=== PATIENT | female | born 1945 | race Caucasian/White ===

== ENCOUNTER 2017-04-11 07:35 | Inpatient (IN) ==
--- NOTE | 2017-04-11 08:04 | EKG Report ---
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
[2017-04-11 08:39] LABS: Basophils # 0.1 10*3/uL (0.0-0.2); Basophils % 0.7 % (0.0-0.8); Eosinophils # 0.2 10*3/uL (0.0-0.87); Eosinophils % 3.4 % (0.00-10.9); Hematocrit 36.9 VOL% (35.7-47.0); Hemoglobin 12.5 GM/DL (12.0-16.0); Immature Granulocytes % 0.1 %; Immature Granulocytes Absolute 0.01 #; Lymphocytes # 1.6 10*3/uL (1.4-4.0); Lymphocytes % 22.3 % (21.3-54.2); Mean Corpuscular HGB Conc 33.9 GM/DL (32-36); Mean Corpuscular Hemoglobin 31 PG (27-34); Mean Corpuscular Volume 91.8 FL (87-102); Mean Platelet Volume 9.7 FL (9.6-12.0); Monocytes # 0.6 10*3/uL (0.11-0.8); Monocytes % 7.8 % (1.7-12.7); Neutrophils # 4.7 10*3/uL (1.4-7.4); Neutrophils % 65.7 % (38.7-73.9); Platelet Count 204 T/CUMM (130-400); Red Blood Count 4.02 MC/CUMM (3.8-5.5); Red Cell Distribution Width 13.1 % (9.3-17.3); White Blood Count 7.1 T/CUMM (4-12)
--- NOTE | 2017-04-11 08:39 | XRay Report ---
Exam: XR chest 1V portable Date: 04/11/2017 8:22 AM Indication: Shortness of breath Comparison: None Technical: AP Findings: The heart is mildly prominent. Patchy area of densities present in the left infrahilar region. External cardiac leads are present. No pneumothorax. No obvious effusion. Mediastinum reveals small tiny nodes on the left. Impression: 1. Question patchy interstitial infiltrate in the left infrahilar region with underlying calcified nodes in the mediastinum PROCEDURE INTERPRETED AT [facility] DEPARTMENT OF RADIOLOGY Final Report Signed by: Dr. Navarro Lincoln
--- NOTE | 2017-04-11 08:47 | CT Report ---
Exam: CT scan of brain without contrast Date: 04/11/2017 Indication: Syncope Comparison: None Patient's classification: Emergency department Technical: Images were obtained from the skull base to the vertex without the use of intravenous contrast. Dose reduction was performed with decreasing kv and mA and automated exposure Total DLP: 1073.1 mGy*cm Findings: The brainstem is unremarkable. The cerebellum is intact. Slight decreased attenuation suggest small vessel changes in the periventricular subcortical white matter regions. The paranasal sinuses globes and sella mastoids are otherwise intact. Vascular plaque within the internal carotid arteries present. The ventricles are slightly prominent. The calvarium is intact. Impression: 1. Minimal small vessel disease without acute hemorrhage infarction or mass effect. PROCEDURE INTERPRETED AT [facility] DEPARTMENT OF RADIOLOGY Final Report Signed by: Dr. Navarro Lincoln
--- NOTE | 2017-04-11 08:58 | Emergency Department Note ---
Arrival - Arrival Chief Complaint: Syncope Stated Complaint: Syncope ED Nursing Triage Note: Patient to ER 08 via EMS. Patient complains that she became light headed and dizzy. Denies fall. Patient had a positive loss of consciousness. Patient denies pain. Mode of Arrival: Stretcher Limitations: No Limitations Source: Patient Time Seen by Provider: 04/11/17 08:13 - History of Present Illness HPI Narrative: The patient complains of a sudden syncopal episode while riding in the car this morning. She says she all of a sudden felt "all crazy" and passed out. Duration was only about 5 seconds. She remembers her almost immediately saying "are you alright." She denies any other presyncopal symptoms. No flushed feeling, chest pain, palpitations, nausea, vomiting or shortness of breath. She initially felt like this may have been due to hypoglycemia, however, she usually has a lot of presyncopal symptoms over at least 10 minutes. This episode happened without warning. Also, her glucose was measured a short time later, after drinking a cup of orange juice, and was 230. She was still feeling weak at that point. At this point she has no complaints and feels back to normal. She has no history of any cardiac problems. Date of Last Menstrual Period: [facility] Allergies/Adverse Reactions: Allergies Allergy/AdvReac Type Severity Reaction Status Date / Time No Known Allergies Allergy Verified 04/11/17 07:45 Home Medications: Home Medications Medication Instructions Recorded Confirmed Type ALPRAZolam [Alprazolam] 0.25 mg PO TID 04/11/17 History Estradiol [Estradiol Tab] 0.5 mg PO DAILY 04/11/17 History Insulin Aspart [NovoLOG] 35 unit SUBCUT .PUMP 04/11/17 History Lisinopril [Lisinopril] 20 mg PO DAILY 04/11/17 History buPROPion HCl [Bupropion Xl] 300 mg PO DAILY 04/11/17 History Review of System - Review of System 12 point system: reviewed and no additional remarkable complaints except as stated - Review of System Constitutional: Absent: diaphoresis, fever Eyes: Absent: vision change Head/Ears/Nose/Throat: Absent: nasal drainage, sore throat Respiratory: Absent: cough, respiratory distress Cardiovascular: Present: syncope. Absent: chest pain, palpitations, dyspnea on exertion, orthopnea, edema Gastrointestinal: Absent: abdominal pain, nausea, vomiting Musculoskeletal: Absent: arm pain, back pain, neck pain Neurological: Absent: headache, weakness, numbness, paresthesias, confusion Medical,Surgical,& Family Hx - Medical History Cardio: History of: Hypertension Endocrine: History of: Diabetes Mellitus (IDDM), Thyroid Disorder - Surgical History Reproductive Surgeries: Surgical HX of;: Hysterectomy - Family History Family History: noncontributory - Social History Smoking Status: Never smoker Frequency of Alcohol Use: Occasionally Type of Drug Use: None Exam Physical Examination: GENERAL: Alert. No acute distress. HEENT: Normocephalic and atraumatic. There is no nasal drainage. No pharyngeal erythema or exudate. NECK: Normal inspection. Supple. No lymphadenopathy or meningismus. LUNGS: No respiratory distress. Clear to auscultation bilaterally, no wheezes, rales or rhonchi. HEART: Regular rate and rhythm. No murmurs. ABDOMEN: Soft, nontender and nondistended with normoactive bowel sounds. BACK: Normal inspection. SKIN: Color normal. Warm and dry. EXTREMITIES: Nontender. Normal range of motion. No pedal edema. NEUROLOGICAL/PSYCHIATRIC: Alert and oriented -3 with normal mood and affect. Cranial nerves normal. No motor or sensory deficit. No pronator drift. Normal finger to nose bilaterally. Vital Signs: Vital Signs Temperature 97.2 F L 04/11/17 07:50 Pulse Rate 78 04/11/17 09:40 Respiratory Rate 12 04/11/17 09:40 Blood Pressure 128/56 04/11/17 09:40 O2 Sat by Pulse Oximetry 96 04/11/17 09:10 Course - Reevaluation(s) Reevaluation #1: I have notified the hospitalist service for admission. They are supposed to come back to the ER. Time: 10:40 Reevaluation #2: I have discussed the patient with the hospitalist service again who will come and see her and admit Time: 11:22 Results - Labs CBC & BMP: 04/11/17 08:15 04/11/17 08:15 Lab Results: I have reviewed the patients labs Labs: Laboratory Tests 04/11/17 04/11/17 04/11/17 08:15 08:15 08:15 INR 1.0 Total Bilirubin 0.60 AST 47 H ALT 28 Troponin I 0.029 Free T4 1.57 H TSH 3rd Generation 0.975 Ur Specific [place] Urine RBC Urine WBC Ur Culture Indicated? 04/11/17 09:08 INR Total Bilirubin AST ALT Troponin I Free T4 TSH 3rd Generation Ur Specific [place] 1.009 Urine RBC <1 Urine WBC 5 Ur Culture Indicated? Not indicated - Impressions EKG shows a sinus rhythm at 69 with a first-degree AV block and a right bundle branch block. No old EKG for comparison. Chest x-ray shows Question patchy interstitial infiltrate in the left infrahilar region with underlying calcified nodes in the mediastinum Disposition Clinical Impression: Syncope Case discussed with: patient Disposition: Still a Patient Condition: Stable Time of Disposition: 11:24
[2017-04-11 09:19] LABS: Apearance,Urine Slightly Hazy (Clear); Bilirubin,Urine Negative (Negative); Blood, Urine Negative (Negative); Glucose,Urine (UA) >=500 mg/dL (Negative); Hyaline Casts,Urine 6 /LPF (0-3); Ketones,Urine Negative (Negative); Mucus,Urine Occasional /LPF (Occasional); Nitrite,Urine Negative (Negative); Protein,Urine Negative; RBC,Urine <1 /HPF (0-4); Squamous Epithelial Cell,Urine Occasional /HPF (0-10); Urine Color Yellow (Yellow); Urine Specific Gravity 1.009 (1.001-1.035); Urine Urobilinogen < 2.0 EU/DL (0.2-1.0); WBC,Urine 5 /HPF (0-6)
[2017-04-11 09:21] LABS: Albumin 3.8 G/DL (3.4-5.0); Bilirubin,Total 0.6 MG/DL (0.2-1.0); Calcium 8.9 MG/DL (8.5-10.1); Magnesium 2.4 MG/DL (1.8-2.4); Osmolality,Calculated 285.5 MOS/KG (273-304); Total Protein 7.2 G/DL (6.4-8.3); Troponin I Only 0.029 NG/ML (0.00-0.045)
[2017-04-11 09:24] LABS: Free T4 (Free Thyroxine) 1.57 NG/DL (0.76-1.46); Thyroid Stimulating Hormone 0.975 uIU/ml (0.358-3.74)
--- NOTE | 2017-04-11 12:16 | Hospitalist History & Physical ---
<Nieves Buckner - Last Filed: 04/11/17 15:04> Assessment and Plan - Time spent with patient Time spent with patient: Greater than 30 minutes (1) Syncope Status: Acute Assessment and plan: Admit, IV fluids; cardotid; Echo; venous doppler; a.m. labs; blood sugar monitoring (patient has an insulin pump (had about 7 years without any problems) ; Current Visit: Yes History of Present Illness Chief complaint: syncope History of present illness: Ms. Ferreira is a very pleasant 71 year old white female presented to [facility] for syncopal episode occurring this a.m. around 630 while riding in the car with her ; she experienced with associated brief episode of loss of consciousness lasting less than a minute; which she woke with her shaking her and asking her if she was okay. She immediately thought her sugar was low; so she got an orange juice and waited for the ambulance to arrive. No other symptoms were present at time of episode. Medical history: Hypertension, diabetes, thyroid disorder. Surgical history: Hysterectomy. Family history: Brother and sister - diabetes; father -cancer. Allergy: None. Never smoked, no alcohol, or illicit drugs. Ambulates with out assistance. Lives at home with spouse Upon presentation at the ED patient was evaluated and lab: WBC 7.1; H&H 12.5 and 36.9; platelet 204; rest of CBC without significance; INR 1.0; PT 10.0; sodium 139; potassium 5.0; chloride 102; carbon dioxide 32; anion gap 10.0; BUN 13; creatinine 1.00; GFR 60; glucose 256; mag 2.4; calcium 8.9; AST 47; AST ALT 28; troponin 0.029; TSH 0.975; T4 1.57; urine:yellow pH 8; specific gravity 1.009; ketones negative; leukocytes trace; WBCs 5; Head CT: Minimal small vessel disease without acute hemorrhage infarction or mass-effect Chest x-ray: Question patchy interstitial infiltrate in the left in infrahilar region with underlying calcified nodes in the mediastinum. After further discussion with Dr. Dr. Horton ED physician and Dr. Johnson hospitalist physician it was in agreement that patient needed to be admitted for further evaluation. Patient is a full code. Home Medications Medication Instructions Recorded Confirmed Type ALPRAZolam [Alprazolam] 0.25 mg PO TID 04/11/17 04/11/17 History Aspirin EC Tab 81 mg PO QAM 04/11/17 04/11/17 History Estradiol [Estradiol Tab] 0.5 mg PO QAM 04/11/17 04/11/17 History Insulin Aspart [NovoLOG] 35 unit SUBCUT .PUMP 04/11/17 04/11/17 History Levothyroxine Tab [Synthroid Tab] 125 mcg PO DAILY@0700 04/11/17 04/11/17 History Lisinopril [Lisinopril] 20 mg PO QAM 04/11/17 04/11/17 History buPROPion HCl [Bupropion Xl] 300 mg PO QAM 04/11/17 04/11/17 History Allergies Allergy/AdvReac Type Severity Reaction Status Date / Time No Known Allergies Allergy Verified 04/11/17 07:45 Medical,Surgical,& Family Hx - Medical History Cardio: History of: Hypertension Endocrine: History of: Diabetes Mellitus (IDDM), Thyroid Disorder - Surgical History Reproductive Surgeries: Surgical HX of;: Hysterectomy - Social History Smoking Status: Never smoker Frequency of Alcohol Use: Occasionally Type of Drug Use: None Review of systems: ROS completed and pertinent positives and negatives in the HPI. Exam - Constitutional Vitals: Period Temp Pulse Resp BP Sys/Molina Pulse Ox Last 24 Hr 97.2 F-97.2 F 69-81 - 128-139/56-72 96-100 General appearance: normal weight - Head Head exam: Present: normal inspection - Eye Eye exam: Present: EOMI Pupils: Present: JENNIFER - Neck Neck exam: Present: normal inspection - Respiratory Respiratory exam: Present: clear to auscultation bilaterally - Cardiovascular Cardiovascular exam: Present: regular rate and rhythm - GI/Abdominal GI/Abdominal exam: Present: normal bowel sounds, soft. Absent: guarding, tenderness - Extremities Exam Extremities exam: Present: full ROM - Neurological Exam Neurological exam: Present: alert, oriented X3, CN II-XII intact - Psychiatric Psychiatric exam: Present: normal affect - Skin Skin exam: Present: normal color, warm, dry Results - Labs CBC & BMP: 04/11/17 08:15 04/11/17 08:15 Lab Results: I have reviewed the past 24 hour labs - Diagnostic Findings Procedure: Chest x-ray: report reviewed by me (question patchy interstitial infiltrate in the left infrahilar region with underlying calcified nodes in the mediastinum), CT: report reviewed by me (Minimal small vessel disease without acute hemorrage infarction or mass effect.) <Kenny Johnson - Last Filed: 04/11/17 15:51> History of Present Illness History of present illness: Patient seen and examined independently of LEASING SALES CONSULTANT Buckner, agree with history, assessment and plan as documented. 71 y/o WF with no known cardiac history presents s/p syncopal episode while driving. She does not remember losing consciousness but notes that her coffee was spilled and she does not remember spilling it. She felt dizzy and lightheaded. Her witnessed the episode but is not in the room at the time of my exam. She does report a long history of mild dizziness episodes associated with looking up, episodes seemed to improve with increasing fluid intake. Of note patient also has an insulin pump, it does not appear that she was hypoglycemic during the episode. She also denies urinary and bowel incontinence. Will admit for syncope. Echo, carotid dopplers, orthostatic vitals and hydrate gently overnight. If work-up is negative she might benefit from a cardiac consult for further monitoring. Exam - Constitutional Vitals: Period Temp Pulse Resp BP Sys/Molina Pulse Ox Last 24 Hr 97.2 F-98.0 F 69-85 12-20 118-151/56-72 96-100 Results - Labs CBC & BMP: 04/11/17 08:15 04/11/17 08:15
--- NOTE | 2017-04-11 12:19 | Ultrasound Report ---
Exam: US venous doppler LE BI Indication: Syncope edema Date: 04/11/2017 11:39 AM Findings: Grayscale color flow duplex/Doppler imaging and spectral analysis waveform imaging was performed with real-time ultrasound with image stored and captured. The right common femoral, superficial femoral, popliteal saphenous veins are patent with normal augmentation and compression. There is no evidence of popliteal or Tolentino's cyst. Normal wave form analysis present. Normal color flow The left common femoral, superficial femoral, popliteal saphenous veins are patent with normal augmentation and compression. There is no evidence of popliteal or Tolentino's cyst. Normal wave form analysis present. Normal color flow Impression: 1. No DVT PROCEDURE INTERPRETED AT [facility] DEPARTMENT OF RADIOLOGY Final Report Signed by: Dr. Navarro Lincoln
--- NOTE | 2017-04-11 12:42 | Ultrasound Report ---
Exam: Carotid ultrasound Date: 04/11/2017 Comparison: None Technique: Duplex scans of the carotid and vertebral arteries using B-mode/Louise scale imaging and Doppler spectral analysis and color flow. Reason: Syncope Findings: The right ICA measures 5.0 mm in diameter and the left ICA measures 4.5 mm in diameter. Color-flow documented in the visualized arteries. The peak systolic velocities are as follows: Right CCA: 62.5 cm/s Right ICA: 96.4 cm/s Right ECA: 139.2 cm/s Left CCA: 85.7 cm/s Left ICA: 106.5 cm/s Left ECA: 141.3 cm/s The peak systolic ICA/CCA velocity ratios are as follows: 1.5 on the right and 1.2 on the left. Antegrade flow is present in both vertebral arteries. Impression:[0-15% stenosis in both internal carotid arteries with no significant plaque formation. Antegrade flow in both vertebral arteries.] The Society of Radiologists in Ultrasound consensus conference criteria was used. The Ultrasound images were captured and stored. PROCEDURE INTERPRETED AT [facility] DEPARTMENT OF RADIOLOGY Final Report Signed by: Dr. Irina Bird
[2017-04-11] MEDS ORDERED: INSULIN ASPART 35 UNIT SUBCUT SCH (13:54)
[2017-04-11] MEDS: ALPRAZolam 0.25 MG TABLET PO SCH ×2 (15:32→21:23)
[2017-04-11] MEDS ORDERED: INSULIN LISPRO 100 UNIT/ML SUBCUT PRN (16:00)
--- NOTE | 2017-04-11 18:26 | ECHO Report ---
Cassi Ferreira Exam Date: 04/11/2017 12:23 Referring Physician: Technologist: June Webster Age: 71 Ht (in): 69 Wt (lb): 148 Gender: F Exam Location: [facility] Echo Indications: syncope, Hx. HTN, diabetes, thyroid disorder BP: 142 / 68 HR: 75 Rhythm: Sinus Technical Quality: Fair IMPRESSIONS EF 60 %. Grade I/IV diastolic dysfunction (abnormal relaxation filling pattern), normal to mildly elevated filling pressures. Normal right ventricular size. Normal right atrial size. The left atrium is mildly enlarged. No mitral valve regurgitation. Mild mitral valve sclerosis. Aortic valve sclerosis. No aortic valve regurgitation. Mild tricuspid valve regurgitation. PAP35 mmHG. Morphologically normal pulmonic valve. No pericardial effusion. Normal size aortic root and proximal ascending aorta. MEASUREMENTS (Male / Female) Normal Values 2D ECHO LV Diastolic Diameter PLAX 3.3 cm 4.2 - 5.9 / 3.9 - 5.3 cm LV Systolic Diameter PLAX 1.8 cm LV Fractional Shortening PLAX 43.6 % IVS Diastolic Thickness 1.2 cm 0.6 - 1.0 / 0.6 - 0.9 cm LVPW Diastolic Thickness 1.1 cm 0.6 - 1.0 / 0.6 - 0.9 cm RV Internal Dim ED PLAX 2.4 cm Aortic Root Diameter 2.0 cm LA Systolic Diameter LX 2.8 cm 3.0 - 4.0 / 2.7 - 3.8 cm DOPPLER TR Peak Velocity 144.0 cm/s TR Peak Gradient 8.3 mmHg FINDINGS Left Ventricle EF 60 %. Grade I/IV diastolic dysfunction (abnormal relaxation filling pattern), normal to mildly elevated filling pressures. Right Ventricle Normal right ventricular size. Right Atrium Normal right atrial size. Left Atrium The left atrium is mildly enlarged. Mitral Valve No mitral valve regurgitation. Mild mitral valve sclerosis. Aortic Valve Aortic valve sclerosis. No aortic valve regurgitation. Tricuspid Valve Morphologically normal tricuspid valve. Mild tricuspid valve regurgitation. .PAP35 mmHG. Pulmonic Valve Morphologically normal pulmonic valve. Pericardium No pericardial effusion. Aorta Normal size aortic root and proximal ascending aorta. Lucio Brandon (Electronically Signed) Final Date: 11 April 2017 18:24
[2017-04-12] MEDS: LEVOTHYROXINE 125 MCG TABLET PO SCH (06:10)
[2017-04-12 07:18] LABS: Basophils % 0.6 % (0.0-0.8); Eosinophils # 0.3 10*3/uL (0.0-0.87); Eosinophils % 4.5 % (0.00-10.9); Hematocrit 33.5 VOL% (35.7-47.0); Hemoglobin 11.2 GM/DL (12.0-16.0); Immature Granulocytes % 0.3 %; Immature Granulocytes Absolute 0.02 #; Lymphocytes # 2.6 10*3/uL (1.4-4.0); Lymphocytes % 40.6 % (21.3-54.2); Mean Corpuscular HGB Conc 33.4 GM/DL (32-36); Mean Corpuscular Hemoglobin 31 PG (27-34); Mean Corpuscular Volume 92.5 FL (87-102); Mean Platelet Volume 10.4 FL (9.6-12.0); Monocytes # 0.7 10*3/uL (0.11-0.8); Monocytes % 10.7 % (1.7-12.7); Neutrophils # 2.7 10*3/uL (1.4-7.4); Neutrophils % 43.3 % (38.7-73.9); Platelet Count 210 T/CUMM (130-400); Red Blood Count 3.62 MC/CUMM (3.8-5.5); Red Cell Distribution Width 13.2 % (9.3-17.3); White Blood Count 6.3 T/CUMM (4-12)
[2017-04-12 07:49] LABS: Albumin 3.3 G/DL (3.4-5.0); Calcium 8.4 MG/DL (8.5-10.1); Magnesium 2.3 MG/DL (1.8-2.4); Phosphorous 3.2 MG/DL (2.5-4.9); Potassium 4.7 MMOL/L (3.5-5.1); Total Protein 6.4 G/DL (6.4-8.3)
[2017-04-12] MEDS: ESTRADIOL 1 MG TABLET PO SCH (10:13)
[2017-04-12] MEDS: ASPIRIN EC 81 MG TABLET PO SCH (10:13)
[2017-04-12] MEDS: ALPRAZolam 0.25 MG TABLET PO SCH ×3 (10:14→21:09)
[2017-04-12] MEDS: LISINOPRIL 20 MG TABLET PO SCH (10:14)
--- NOTE | 2017-04-12 17:27 | Hospitalist Progress Note ---
Assessment and Plan - Time spent with patient Time spent with patient: Less than 30 minutes (1) Syncope Status: Acute Assessment and plan: Workup for syncope negative so far as stated in the HPI, Holter monitor results pending, will adjust therapy accordingly, continue Accu-Cheks and sliding scale insulin as well as diabetic diet and gentle hydration. Current Visit: Yes Hospitalist: Subjective Interval history: Patient sitting in bed comfortably eating lunch, in no acute distress and no acute events overnight. Denies any further syncopal events and states that she feels well. Today the patient states that her admits that she may have been unconscious for 2 or 3 minutes while he found a place to veneer puller and evaluate her. Patient was not hypoglycemic when the paramedics checked her blood glucose. Orthostatic blood pressures negative. Carotid ultrasound shows no significant stenosis bilaterally. Echocardiogram shows an EF of 60%. Venous Dopplers of lower extremities show no DVT. CT head was normal. EKG shows mild first and second-degree blocks. Patient is currently wearing Holter monitor which 24 hours will be completed this evening and then will need to be evaluated. Patient denies nausea, vomiting, constipation, diarrhea, chest pain , shortness of breath or pain/swelling in lower extremities. Exam - Constitutional Vitals: Period Temp Pulse Resp BP Sys/Molina Pulse Ox Last 24 Hr 97.4 F-98.2 F 51-83 18-20 105-145/47-76 99-99 General appearance: normal weight - Head Head exam: Present: normal inspection - Eye Eye exam: Present: EOMI Pupils: Present: JENNIFER - Respiratory Respiratory exam: Present: clear to auscultation bilaterally - Cardiovascular Cardiovascular exam: Present: regular rate and rhythm - GI/Abdominal GI/Abdominal exam: Present: normal bowel sounds, soft - Extremities Exam Extremities exam: Present: normal inspection - Neurological Exam Neurological exam: Present: alert, oriented X3 - Psychiatric Psychiatric exam: Present: normal affect, normal mood - Skin Skin exam: Present: normal color Results - Labs CBC & BMP: 04/12/17 05:20 04/12/17 05:20 Lab Results: I have reviewed the past 24 hour labs
[2017-04-13] MEDS: LEVOTHYROXINE 125 MCG TABLET PO SCH (06:07)
[2017-04-13 07:30] VITALS: BP 119/52
[2017-04-13] MEDS: ASPIRIN EC 81 MG TABLET PO SCH (09:08)
[2017-04-13] MEDS: ESTRADIOL 1 MG TABLET PO SCH (09:09)
[2017-04-13] MEDS: LISINOPRIL 20 MG TABLET PO SCH (09:10)
[2017-04-13] MEDS: ALPRAZolam 0.25 MG TABLET PO SCH ×2 (09:12→16:45)
--- NOTE | 2017-04-13 11:17 | Discharge Summary ---
<Nieves Buckner - Last Filed: 04/13/17 11:51> Hospital Course - Hospital Course Hospital Course: 71 yo female with history IDDM presented to [facility] for a new onset syncopal episode while riding in the car as a passenger with her . Patient has an insulin pump and BS was 235. Labs results were unremarkable. BS were monitored. Echo: EF 60% with mild diastolic dysfunction, US Carotid doppler: 0-15% stenosis; no significant plaque, Venous Doppler: No DVT; Cardiac Holter Monitor: completed but Pending reading results. CT head: normal. EKG: NSR with complete RBBB. Patient feels good today and will be discharged home with f/u by Cardiology and PMD in one to two weeks. - Time spent with patient Time with patient DS: Less than 30 minutes Diagnosis - Discharge Diagnosis (1) Syncope Status: Resolved Specialty Discharge - Follow Up or Referrals Follow up with: Dr LANIE [Other] - 1 Week (first available for syncope, holter monitor done ) Discharge Plan - Discharge Data Disposition: Disch To Home/Self Care - Discharge Medications Continue Insulin Aspart [NovoLOG] 35 unit SUBCUT .PUMP buPROPion HCl [Bupropion Xl] 300 mg PO QAM Lisinopril 20 mg PO QAM Levothyroxine Tab [Synthroid Tab] 125 mcg PO DAILY@0700 ALPRAZolam [Alprazolam] 0.25 mg PO TID Estradiol [Estradiol Tab] 0.5 mg PO QAM Aspirin EC Tab 81 mg PO QAM - Follow Up or Referral Follow Up: Dr LANIE [Other] - 1 Week (first available for syncope, holter monitor done ) - Forms/Instructions Exam - Constitutional Vitals: Period Temp Pulse Resp BP Sys/Molina Pulse Ox Last 24 Hr 97.3 F-98.2 F 62-94 18-20 103-133/48-58 97-99 - Eye Eye exam: Present: EOMI Pupils: Present: JENNIFER - Neck Neck exam: Present: normal inspection - Neurological Exam Neurological exam: Present: alert, oriented X3 - Skin Skin exam: Present: normal color, warm, dry Discharge Results Procedures and tests throughout hospitalization: ECHO: Left Ventricle EF 60 %. normal to mildly elevated filling pressures. VENOUS DOPPLER: No DVT Carotid Doppler: 0-15% stenosis in both internal carotid arteries with no significant plaque information. HEAD CT: minimal small vessel disease without acute hemorrhage infarction or mass effect Chest XRay: question patchy intestitial infiltrate in the left infrahilar region with underlying calcified nodes in the mediastinum. Labs on day of discharge: Labs from last 24 hours 04/13/17 04/12/17 04/12/17 06:49 21:56 15:46 POC Glucose 249 H 289 H 331 H 04/12/17 12:09 POC Glucose 226 H DS: Provider Date of admission: 04/11/17 11:37 Primary care physician: Yoly Townsend M.D. Attending physician on admission: Tani Schneider MD Consults: 04/11/17 13:54 Consult to Diabetes Center, Educator [CONS] Routine Reason for Transportation Superintendent: Other Consult Comment: pt has insulin pump, in with syncopy 04/11/17 14:16 Consult to Dietitian [CONS] Routine Reason for Dietitian: Other Discharging clinician: Nieves Buckner NP <Ashleigh Kang - Last Filed: 04/13/17 12:58> Hospital Course - Time spent with patient Time with patient DS: Less than 30 minutes (25 min) Discharge Plan - Discharge Data Condition at Discharge: Stable Discharge Diet: heart healthy Activity: resume usual activities as tolerated Hygiene: no restrictions Weight Bearing at Discharge: full weight bearing Driving: no restrictions Exam - Constitutional General appearance: normal weight, no acute distress - Head Head exam: Present: normal inspection, normocephalic - Respiratory Respiratory exam: Present: clear to auscultation bilaterally. Absent: rhonchi, wheezes - Cardiovascular Cardiovascular exam: Present: regular rate and rhythm. Absent: systolic murmur - GI/Abdominal GI/Abdominal exam: Present: normal bowel sounds, soft. Absent: tenderness - Extremities Exam Extremities exam: Present: normal inspection, normal capillary refill - Psychiatric Psychiatric exam: Present: normal affect, normal mood
== END 2017-04-13 12:43 | disposition home or self-care (01) | DRG 312 ==
LOC: EDBD → EDUNIT# → N.ED 07:35 → N.EDINP 11:37 → SUATTDRO 11:37 → N.5E 13:12
PROVIDERS: ADMIT Internal Medicine Geriatric Medicine; ATTEND Internal Medicine

== ENCOUNTER 2017-05-30 13:32 | Inpatient (IN) ==
[2017-05-30] MEDS ORDERED: ONDANSETRON 4 MG/2 ML VIAL IV PRN (14:53)
[2017-05-30] MEDS ORDERED: GLUCAGON 1 MG VIAL IM PRN (14:53)
[2017-05-30] MEDS ORDERED: MAGNESIUM SULF RIDER 4 GM in PREMIX 1 EACH IV PRN (14:53)
[2017-05-30] MEDS ORDERED: ACETAMINOPHEN 325 MG TABLET PO PRN (14:53)
[2017-05-30] MEDS ORDERED: MAGNESIUM SULF RIDER 2 GM in PREMIX 1 EACH IV PRN (14:53)
[2017-05-30] MEDS ORDERED: DOCUSATE SODIUM 100 MG CAPSULE PO PRN (14:53)
[2017-05-30] MEDS ORDERED: DEXTROSE 50% 25 GM/50 ML SYRINGE IV PRN (14:53)
[2017-05-30] MEDS ORDERED: ZALEPLON 5 MG CAPSULE PO PRN (14:53)
[2017-05-30] MEDS ORDERED: INSULIN ASPART 35 UNIT SUBCUT SCH (15:00)
--- NOTE | 2017-05-30 15:00 | Emergency Department Note ---
Elaine Levine Hilary, am scribing for, and in the presence of, Booker Shirley MD 14: 53. Fern Levine James D, MD, personally performed the services described in this documentation, ascribed by Marge Henry in my presence, and it is both accurate and complete 459 . Arrival - Arrival Chief Complaint: Syncope Stated Complaint: passed out/sent by dr Field ED Nursing Triage Note: Pt states that she is scheduled to have a pacemaker placed on Tu - pt states that she has holter and that after the results she was scheduled for pacemaker - pt called [facility] and Dr Field old her to come to ER Mode of Arrival: Ambulatory Limitations: No Limitations Source: Patient, RN Notes Reviewed - History of Present Illness HPI Narrative: Pt is a 71 y/o white female presenting to the ED with c/o syncope which onset today. Pt states that about a month ago she had a syncopal episode with a HR of 40, was placed on a heart monitor and scheduled to have a pacemaker placed in next week. She reports feeling dizzy today and then woke up on the floor in a cold sweat. Pt confirms dizziness before syncope, diaphoresis and nausea but denies chest pain or SOB. No other complaints or problems stated in the ED. Onset (ago): hour(s) Consistency: intermittent Severity: mild Severity scale (1-10): 2 Date of Last Menstrual Period: hyster Allergies/Adverse Reactions: Allergies Allergy/AdvReac Type Severity Reaction Status Date / Time No Known Allergies Allergy Verified 04/11/17 07:45 Home Medications: Home Medications Medication Instructions Recorded Confirmed Type ALPRAZolam [Alprazolam] 0.25 mg PO TID 04/11/17 04/11/17 History Aspirin EC Tab 81 mg PO QAM 04/11/17 04/11/17 History Estradiol [Estradiol Tab] 0.5 mg PO QAM 04/11/17 04/11/17 History Insulin Aspart [NovoLOG] 35 unit SUBCUT .PUMP 04/11/17 04/11/17 History Levothyroxine Tab [Synthroid Tab] 125 mcg PO DAILY@0700 04/11/17 04/11/17 History Lisinopril 20 mg PO QAM 04/11/17 04/11/17 History buPROPion HCl [Bupropion Xl] 300 mg PO QAM 04/11/17 04/11/17 History Review of System - Review of System 12 point system: reviewed and no additional remarkable complaints except as stated - Review of System Constitutional: Present: diaphoresis. Absent: fever Respiratory: Absent: respiratory distress (SOB) Cardiovascular: Present: syncope. Absent: chest pain Gastrointestinal: Present: nausea Medical,Surgical,& Family Hx - Medical History Cardio: History of: Hypertension Psychological: No history of: Anxiety Disorders, ADHD, Behavior Problems, Bipolar Disorder, Depression, Previous Suicide Attempt, Psychiatric/Substance Abuse Tx, Schizophrenia, Violent Behavior, Psychiatric Problems Endocrine: History of: Diabetes Mellitus (IDDM) - Surgical History Orthopedic Surgeries: Surgical HX of;: Orthopedic Surgery (rotator cuff surgery) - Social History Smoking Status: Never smoker Frequency of Alcohol Use: None Type of Drug Use: None Exam Physical Examination: GENERAL: This is a well-nourished, well-developed in no apparent distress. VITAL SIGNS: Temperature: 97.6 Pulse: 72 Respiratory: 20 Blood Pressure: 169/ 86 O2 Sat: 100 HEENT: Head is normocephalic and atraumatic. Pupils are equally round and reactive to light. Extraocular movement are intact. Oropharynx is benign with moist mucous membranes. NECK: Neck is soft and supple without tenderness. There are no masses. There is no lymphadenopathy. LUNGS: Lungs are clear to auscultation bilaterally. Chest rises symmetrically. There is no chest wall tenderness. CV: Heart is regular rate and rhythm without murmurs, rubs, or gallops. ABDOMEN: Abdomen is soft, non-tender to palpation. There are no abnormal masses palpated. There is no organomegaly. Bowel sounds are present and active. SKIN: Skin is warm and dry. No rash. EXTREMITIES: Patient has full range of motion without tenderness. There is no pedal edema. NEUROLOGIC: Awake, alert, and oriented x4. Cranial nerves II through XII are grossly intact. There are no motorsensory deficits. PSYCHIATRIC: Normal affect. Normal mood. Vital Signs: Vital Signs Temperature 97.6 F 05/30/17 14:30 Pulse Rate 72 05/30/17 14:30 Respiratory Rate 20 05/30/17 14:30 Blood Pressure 169/86 05/30/17 14:30 O2 Sat by Pulse Oximetry 100 05/30/17 13:38 Course - Consultations Consultation #1: Discussed with cardiology. Patient will be admitted to their service. Time: 15:00 Results - Labs CBC & BMP: 05/30/17 14:42 05/30/17 14:42 Lab Results: I have reviewed the patients labs Labs: Laboratory Tests 05/30/17 14:42 WBC 8.1 RBC 4.12 Hgb 12.7 Hct 38.0 Plt Count 238 Lymph % (Auto) 18.2 L Laboratory Tests 05/30/17 14:42 Sodium 139 Potassium 4.2 Chloride 104 Carbon Dioxide 30 Glucose 118 H Total Protein 8.0 Globulin 4.1 H Albumin/Globulin Ratio 0.9 L Disposition Clinical Impression: Syncope, Bradycardia, Diabetes mellitus Case discussed with: patient, patient's family Disposition: Still a Patient Condition: Stable
[2017-05-30 15:03] LABS: Basophils # 0.1 10*3/uL (0.0-0.2); Basophils % 0.7 % (0.0-0.8); Eosinophils # 0.1 10*3/uL (0.0-0.87); Eosinophils % 1.1 % (0.00-10.9); Hemoglobin 12.7 GM/DL (12.0-16.0); Immature Granulocytes % 0.5 %; Immature Granulocytes Absolute 0.04 #; Lymphocytes # 1.5 10*3/uL (1.4-4.0); Lymphocytes % 18.2 % (21.3-54.2); Mean Corpuscular HGB Conc 33.4 GM/DL (32-36); Mean Corpuscular Hemoglobin 31 PG (27-34); Mean Corpuscular Volume 92.2 FL (87-102); Monocytes # 0.6 10*3/uL (0.11-0.8); Monocytes % 7.5 % (1.7-12.7); Neutrophils # 5.8 10*3/uL (1.4-7.4); Platelet Count 238 T/CUMM (130-400); Red Blood Count 4.12 MC/CUMM (3.8-5.5); Red Cell Distribution Width 13.2 % (9.3-17.3); White Blood Count 8.1 T/CUMM (4-12)
[2017-05-30 15:14] LABS: Albumin 3.9 G/DL (3.4-5.0); Bilirubin,Total 0.5 MG/DL (0.2-1.0); Calcium 9.2 MG/DL (8.5-10.1); Osmolality,Calculated 276.5 MOS/KG (273-304); Potassium 4.2 MMOL/L (3.5-5.1)
--- NOTE | 2017-05-30 15:54 | XRay Report ---
Portable chest Date: 05/30/2017 Clinical history: Shortness of breath Comparison: 04/11/2017 Technique: Portable AP sitting chest Findings: The heart is minimally enlarged. Minimal chronic scarring in the lungs with stable mediastinum and osseous structures. Impression: Minimal cardiomegaly with chronic scarring in the lungs. PROCEDURE INTERPRETED AT [facility] DEPARTMENT OF RADIOLOGY Final Report Signed by: Dr. Irina Bird
--- NOTE | 2017-05-30 16:19 | Cardiology History & Physical ---
Assessment and Plan - Time spent with patient Time spent with patient: Greater than 30 minutes (due to assessment, plan, and documentation) (1) Syncope Status: Acute Assessment and plan: See plan of care listed below. Current Visit: Yes (2) Second degree heart block Status: Chronic Assessment and plan: See plan of care listed below. Current Visit: Yes (3) Right bundle branch block (RBBB) Status: Chronic Assessment and plan: See plan of care listed below. Current Visit: Yes (4) Hypertension Status: Chronic Assessment and plan: See plan of care listed below. Current Visit: Yes (5) Type 2 diabetes mellitus Status: Chronic Assessment and plan: See plan of care listed below. Current Visit: Yes History of Present Illness Chief complaint: syncope History of present illness: Sanitation Technician: Dr. Ger Hernandez PCP: Dr. Townsedn Ms. Ferreira is a 71 year old female with risk factors significant for hypertension, type 2 diabetes mellitus, sedentary lifestyle, age. She also has a history of right bundle branch block and syncope. Recent testing includes venous dopplers negative for DVT on 04/11/17, carotid dopplers with 0-15% stenosis in the bilateral ICAs on 04/11/17, and echocardiogram on 04/11/17 which revealed EF 60%, grade I/IV diastolic dysfunction, mildly enlarged LA, no MR, aortic valve sclerosis, mild TR, PAP 35 mmHg, no pericardial effusion. Ms. Ferreira presented to the emergency room today after calling the office after a syncopal episode. She was urged to go to the ER by Dr. Field and seek further evaluation. She was seen in clinic by Dr. Hernandez on 05/28/17 and scheduled for dual chamber pacemaker placement next Friday. She recently had a syncopal/presyncopal event while riding in a car. She states that EMS saw her shortly after that syncopal episode and her HR was noted to be 40 She was monitored in the hospital and underwent carotid testing, echocardiogram, and telemetry monitoring. During her time in the hospital, these tests did not reveal any significant abnormalities and she did not have any sort of arrhythmia. 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 During the 30 day event recorder, she had an episode of lightheadedness which demonstrated asymptomatic type II AV block. Dr. Hernandez felt she would benefit from placement of a dual chamber pacemaker which was scheduled for Friday; however, today she had a syncopal episode. She states that she felt dizzy and then woke up on the floor in a cold sweat. She reports associated symptoms of diaphoresis and nausea but denies chest pain or shortness of breath. She tells me that she is unsure how long she was unconscious but she woke up covered in sweat and was too weak to get up from the floor for approximately 45 minutes. When she was able to get up from the floor, she checked her blood pressure and it was 131/70s. She notes her BP when she woke this morning was 134/70s. She tells me that she has been off of her blood pressure medicine for the past 6 weeks and her blood pressure has been okay. However, at her visit with Dr. Hernandez on Friday she was noted to have a blood pressure 179/77 and she was restarted on lisinopril 10 mg p.o. daily. She states she has taken this past couple days and then had her episode today. She states that she had had some right-sided chest tightness for the past couple of days she states this feels like a dull anxious feeling. She is admitted to cardiology service for further monitoring and dual chamber pacemaker placement on Friday or Friday. Upon arrival to our facility, she is noted to have a blood pressure of 169/86. EKG shows sinus rhythm with first degree AV block, right bundle branch block, and left anterior fascicular block. Heart rates have been in the 60s-70s. Labs have been stable with unremarkable CBC. BMP shows potassium 4.2, creatinine 0.9 , normal TSH, normal AST/ALT/ALP. ASSESSMENT/PLAN: 1. SYNCOPE - Will admit to telemetry for further monitoring. She will be tentatively scheduled for dual chamber pacemaker on Friday or Friday. She has recently undergone testing for syncopal episode almost 2 months ago. Her blood pressure has been running high in the past but after she had her last syncopal episode, her antihypertensive medication was reduced. At her visit with Dr. Hernandez, she was restarted on a low dose to try to improve her blood pressure control. 2. SECOND DEGREE HEART BLOCK - Will continue to monitor. 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 Plan for proceeding with dual chamber pacemaker next week. It is still somewhat unclear what is causing her syncopal spells. It could be a transient arrhythmia, transient hypoglycemic spell, or a side effect of her antihypertensive medications. Will avoid nicky blocking agents. 3. RIGHT BUNDLE BRANCH BLOCK - Will continue to monitor. Plan for proceeding with dual chamber pacemaker next week. 4. HYPERTENSION - Currently slightly elevated. As her syncope is thought to possibly be related to a transient arrhythmia, transient hypoglycemic spell, or a side effect of her antihypertensive medication, we will hold her lisinopril for now. She does have "white-coat syndrome" and was noted to have a blood pressure of 199/87 at the time of my interview. We will add PRN hydralazine to use throughout the night for blood pressure coverage if this does not improve after she is able to relax. 5. DIABETES MELLITUS, TYPE 2 - Will start accuchecks with sliding scale insulin coverage. Home Medications Medication Instructions Recorded Confirmed Type ALPRAZolam [Alprazolam] 0.25 mg PO TID 04/11/17 04/11/17 History Aspirin EC Tab 81 mg PO QAM 04/11/17 04/11/17 History Estradiol [Estradiol Tab] 0.5 mg PO QAM 04/11/17 04/11/17 History Insulin Aspart [NovoLOG] 35 unit SUBCUT .PUMP 04/11/17 04/11/17 History Levothyroxine Tab [Synthroid Tab] 125 mcg PO DAILY@0700 04/11/17 04/11/17 History Lisinopril 20 mg PO QAM 04/11/17 04/11/17 History buPROPion HCl [Bupropion Xl] 300 mg PO QAM 04/11/17 04/11/17 History Allergies Allergy/AdvReac Type Severity Reaction Status Date / Time No Known Allergies Allergy Verified 04/11/17 07:45 Review of systems: - Constitutional: Present: As per HPI. Absent: anorexia, chills, daytime sleepiness, excessive sweating, fever(s), frequent falls, headache(s), increased appetite, lethargy, malaise, night sweats, stops breathing during sleep, weakness, weight gain, weight loss, fatigue. - EENT Eyes: Present: As per HPI. Absent: blurry vision, diplopia, loss of vision Ears: Present: As per HPI. Absent: decreased hearing, ear discharge, ear pain Nose, mouth and throat: Present: As per HPI. Absent: dysphagia, epistaxis, headache(s), hoarseness, lip swelling, nasal congestion, neck mass, neck pain, sinus pressure, sore throat, throat swelling, tongue swelling, vertigo - Cardiovascular: Present: diaphoresis, as per HPI. Absent: chest pain at rest , chest pain with activity, dyspnea, dyspnea on exertion, edema, claudication, radiating jaw, neck or arm pain, lightheadedness, orthopnea, palpitations, PND - Respiratory: Present: as per HPI. Absent: dyspnea, dyspnea on exertion, cough , hemoptysis, wheezing, snoring, pain on inspiration - Gastrointestinal: Present: nausea, As per HPI. Absent: abdominal pain, bloating, change in bowel habits, constipation, diarrhea, heartburn, hematemesis , hematochezia, loose stools, melena, vomiting - Genitourinary: Present: As per HPI. Absent: difficulty urinating, dysuria, flank pain, hematuria, nocturia, urinary frequency, urinary incontinence - Musculoskeletal: Present: As per HPI. Absent: arthralgias, back pain, joint swelling, limited range of motion, muscle cramps, muscle weakness, myalgias - Neurological: Present: dizziness, syncope, As per HPI. Absent: abnormal gait, abnormal speech, behavioral changes, confusion, convulsions, disequilibrium, focal weakness, frequent falls, headache(s), memory loss, numbness, paresthesias , radicular pain, tremor(s) - Psychiatric: Present: As per HPI. Absent: anxiety, confusion, depression, panic attacks - Endocrine: Present: As per HPI. Absent: cold intolerance, fatigue, heat intolerance, polydipsia, polyphagia - Hematologic/Lymphatic: Present: As per HPI. Absent: easy bleeding, easy bruising, lymphadenopathy Medical,Surgical,& Family Hx - Medical History Cardio: History of: Hypertension Psychological: No history of: Anxiety Disorders, ADHD, Behavior Problems, Bipolar Disorder, Depression, Previous Suicide Attempt, Psychiatric/Substance Abuse Tx, Schizophrenia, Violent Behavior, Psychiatric Problems Endocrine: History of: Diabetes Mellitus (IDDM) - Surgical History Orthopedic Surgeries: Surgical HX of;: Orthopedic Surgery (rotator cuff surgery) - Social History Smoking Status: Never smoker Frequency of Alcohol Use: None Type of Drug Use: None Marital Status: Lives With:: Spouse Functional capacity: independent ambulation Cardiology Physical Exam - Constitutional Vitals: Vital Signs Temp Pulse Resp BP Pulse Ox 97.6 F 72 20 169/86 100 05/30/17 14:30 05/30/17 14:30 05/30/17 14:30 05/30/17 14:30 05/30/17 13:38 Intake and Output 05/30/17 05/30/17 05/30/17 06:59 14:59 22:59 Other: Weight 148 lb Patient Weight 05/31/17 06:59 Weight 148 lb Exam: General appearance: Pleasant and cooperative. Overweight, no acute distress. Head exam: Present: normal inspection, normocephalic, atraumatic. Absent: hematoma, laceration Eye exam: Present: EOMI. Absent: conjunctival injection, nystagmus, periorbital swelling, scleral icterus, laceration to eyelids Pupils: Present: PERRL. Absent: constricted, dilated, fixed, irregular, unequal ENT exam: Present: normal exam, normal external ear exam Neck exam: Present: normal inspection. Absent: lymphadenopathy, meningismus, tenderness, thyromegaly, carotid bruit Respiratory exam: Present: clear to auscultation bilaterally. Absent: accessory muscle use, chest wall tenderness, rales, rhonchi, wheezing. Cardiovascular exam: Present: regular rate and rhythm. Absent: gallop, JVD, rubs, murmur GI/Abdominal exam: Present: normal bowel sounds, soft. Absent: distended, firm , guarding, hernia, mass, tenderness, rebound. Extremities exam: Present: normal inspection, normal capillary refill. Upper extremity pulses 2+. Lower extremity pulses 2+. Absent: calf tenderness, edema Musculoskeletal: Present: No Fluid Collection, No Pain, Normal Range of Motion Back exam: Present: normal inspection. Absent: muscle spasm, vertebral tenderness Neurological exam: Present: alert, oriented X3, grossly intact without resting or essential tremor Psychiatric exam: Present: normal affect, normal mood Skin exam: Present: normal color, warm, dry, intact. Absent: cyanosis, diaphoretic, rash, urticaria Result/EKG - Labs CBC & BMP: 05/30/17 14:42 05/30/17 14:42 Lab Results: I have reviewed the past 24 hour labs Labs: Laboratory Results - last 24 hr 05/30/17 05/30/17 05/30/17 14:42 14:42 14:42 WBC 8.1 RBC 4.12 Hgb 12.7 Hct 38.0 MCV 92.2 MCH 31 MCHC 33.4 RDW 13.2 Plt Count 238 MPV 10.0 Neut % (Auto) 72.0 Lymph % (Auto) 18.2 L [place] % (Auto) 7.5 Eos % (Auto) 1.1 Baso % (Auto) 0.7 Neut # (Auto) 5.8 Lymph # (Auto) 1.5 [place] # (Auto) 0.6 Eos # (Auto) 0.1 Baso # (Auto) 0.1 Immature Gran % 0.5 Nucleated RBC % 0.0 Immature Gran # 0.04 Nucleated RBCs # 0.00 Immature Plt Fraction 0.0 Sodium 139 Potassium 4.2 Chloride 104 Carbon Dioxide 30 Anion Gap 9.2 BUN 11 Creatinine 0.90 GFR Calculation 68 BUN/Creatinine Ratio 12.00 Glucose 118 H Calculated Osmolality 276.5 Calcium 9.2 Total Bilirubin 0.50 AST 25 ALT 22 Alkaline Phosphatase 71 Total Protein 8.0 Albumin 3.9 Globulin 4.1 H Albumin/Globulin Ratio 0.9 L TSH 3rd Generation 1.030 - EKG EKG results: interpreted by me, sinus rhythm (with first degree AV block, right bundle branch block, left anterior fascicular block )
[2017-05-30] MEDS ORDERED: INSULIN LISPRO 100 UNIT/ML SUBCUT SCH (16:30)
[2017-05-30] MEDS ORDERED: hydrALAZINE 20 MG/1 ML VIAL IV PRN (17:06)
[2017-05-30] MEDS: PANTOPRAZOLE 40 MG TABLET PO SCH (17:30)
[2017-05-30] MEDS ORDERED: ALPRAZolam 0.25 MG TABLET PO PRN (19:49)
[2017-05-30 21:35] LABS: Apearance,Urine Slightly Hazy (Clear); Bacteria,Urine Occasional /HPF (Few); Bilirubin,Urine Negative (Negative); Blood, Urine Negative (Negative); Glucose,Urine (UA) >=500 mg/dL (Negative); Hyaline Casts,Urine 5 /LPF (0-3); Ketones,Urine 20 mg/dL (Negative); Mucus,Urine Occasional /LPF (Occasional); Nitrite,Urine Negative (Negative); Protein,Urine Negative; RBC,Urine 1 /HPF (0-4); Squamous Epithelial Cell,Urine Occasional /HPF (0-10); Urine Color Yellow (Yellow); Urine Specific Gravity 1.012 (1.001-1.035); Urine Urobilinogen < 2.0 EU/DL (0.2-1.0); WBC,Urine 22 /HPF (0-6)
[2017-05-31 05:08] LABS: Basophils % 0.7 % (0.0-0.8); Eosinophils # 0.3 10*3/uL (0.0-0.87); Eosinophils % 4.2 % (0.00-10.9); Hematocrit 34.4 VOL% (35.7-47.0); Hemoglobin 11.4 GM/DL (12.0-16.0); Immature Granulocytes % 0.2 %; Immature Granulocytes Absolute 0.01 #; Lymphocytes # 2.6 10*3/uL (1.4-4.0); Lymphocytes % 43.5 % (21.3-54.2); Mean Corpuscular HGB Conc 33.1 GM/DL (32-36); Mean Corpuscular Hemoglobin 31 PG (27-34); Mean Corpuscular Volume 92.2 FL (87-102); Mean Platelet Volume 9.8 FL (9.6-12.0); Monocytes # 0.7 10*3/uL (0.11-0.8); Monocytes % 12.1 % (1.7-12.7); Neutrophils # 2.3 10*3/uL (1.4-7.4); Neutrophils % 39.3 % (38.7-73.9); Platelet Count 201 T/CUMM (130-400); Red Blood Count 3.73 MC/CUMM (3.8-5.5); Red Cell Distribution Width 13.1 % (9.3-17.3); White Blood Count 5.9 T/CUMM (4-12)
[2017-05-31 05:42] LABS: Magnesium 2.5 MG/DL (1.8-2.4); Risk Ratio 2.09
[2017-05-31] MEDS ORDERED: LEVOTHYROXINE 125 MCG TABLET PO SCH (07:00)
--- NOTE | 2017-05-31 07:10 | EKG Report ---
Stationary ECG Study [facility] ER Test Date: 05/30/2017 1:38:56 PM Pat Name: BORA JOHNSON Department: Room: 278 Gender: F Furnace Checker: : 1945 Requested by: Felipa Andrea Order Number: [id number] Reading MD: ANGEL BATISTA Intervals [place] Rate: 69 P: 78 KS: 230 QRS: -72 QRSD: 151 T: 71 QT: 425 QTc: 445 Interpretive Statements SINUS RHYTHM WITH FIRST DEGREE AV BLOCK POSSIBLE LEFT ATRIAL ENLARGEMENT RIGHT BUNDLE BRANCH BLOCK LEFT ANTERIOR FASCICULAR BLOCK CANNOT RULE OUT SEPTAL INFARCT, AGE UNDETERMINED LATERAL INFARCT, AGE UNDETERMINED Electronically Signed On 05-31-17 07:58:58 CDT by ANGEL BATISTA [email or web address]
[2017-05-31 07:48] VITALS: BP 145/55
--- NOTE | 2017-05-31 08:37 | EKG Report ---
Stationary ECG Study [facility] Test Date: 05/31/2017 8:36:17 AM Pat Name: BORA JOHNSON Department: Room: 278 Gender: F User Support Specialist: DEBRA : 1945 Requested by: Felipa Andrea Order Number: [id number] Reading MD: ANGEL BATISTA Intervals [place] Rate: 71 P: 65 SC: 221 QRS: -75 QRSD: 153 T: 75 QT: 410 QTc: 433 Interpretive Statements SINUS RHYTHM WITH PROLONGED SC INTERVAL RIGHT BUNDLE BRANCH BLOCK LEFT ANTERIOR FASCICULAR BLOCK PROBABLE ANTEROSEPTAL MYOCARDIAL INFARCTION, OF INDETERMINATE AGE Electronically Signed On 05-31-17 11:33:51 CDT by ANGEL BATISTA [email or web address]
[2017-05-31] MEDS ORDERED: ASPIRIN EC 81 MG TABLET PO SCH (09:00)
[2017-05-31] MEDS ORDERED: ESTRADIOL 1 MG TABLET PO SCH (09:00)
[2017-05-31] MEDS: PANTOPRAZOLE 40 MG TABLET PO SCH (09:14)
--- NOTE | 2017-05-31 11:04 | Discharge Summary ---
Hospital Course - Hospital Course Hospital Course: Bulb Grader: Dr. Ger Hernandez PCP: Dr. Townsend MAY 30, 2017: Ms. Ferreira is a 71 year old female with risk factors significant for hypertension, type 2 diabetes mellitus, sedentary lifestyle, age. She also has a history of right bundle branch block and syncope. Recent testing includes venous dopplers negative for DVT on 04/11/17, carotid dopplers with 0-15% stenosis in the bilateral ICAs on 04/11/17, and echocardiogram on 04/11 which revealed EF 60%, grade I/IV diastolic dysfunction, mildly enlarged LA , no MR, aortic valve sclerosis, mild TR, PAP 35 mmHg, no pericardial effusion. Ms. Ferreira presented to the emergency room today after calling the office after a syncopal episode. She was urged to go to the ER by Dr. Field and seek further evaluation. She was seen in clinic by Dr. Hernandez on 05/28/17 and scheduled for dual chamber pacemaker placement next Friday. She recently had a syncopal/presyncopal event while riding in a car. She states that EMS saw her shortly after that syncopal episode and her HR was noted to be 40 She was monitored in the hospital and underwent carotid testing, echocardiogram, and telemetry monitoring. During her time in the hospital, these tests did not reveal any significant abnormalities and she did not have any sort of arrhythmia. 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 During the 30 day event recorder, she had an episode of lightheadedness which demonstrated asymptomatic type II AV block. Dr. Hernandez felt she would benefit from placement of a dual chamber pacemaker which was scheduled for Friday; however, today she had a syncopal episode. She states that she felt dizzy and then woke up on the floor in a cold sweat. She reports associated symptoms of diaphoresis and nausea but denies chest pain or shortness of breath. She tells me that she is unsure how long she was unconscious but she woke up covered in sweat and was too weak to get up from the floor for approximately 45 minutes. When she was able to get up from the floor, she checked her blood pressure and it was 131/70s. She notes her BP when she woke this morning was 134/70s. She tells me that she has been off of her blood pressure medicine for the past 6 weeks and her blood pressure has been okay. However, at her visit with Dr. Hernandez on Friday she was noted to have a blood pressure 179/77 and she was restarted on lisinopril 10 mg p.o. daily. She states she has taken this past couple days and then had her episode today. She states that she had had some right-sided chest tightness for the past couple of days she states this feels like a dull anxious feeling. She is admitted to cardiology service for further monitoring and dual chamber pacemaker placement on Friday or Friday. Upon arrival to our facility, she is noted to have a blood pressure of 169/86. EKG shows sinus rhythm with first degree AV block, right bundle branch block, and left anterior fascicular block. Heart rates have been in the 60s-70s. Labs have been stable with unremarkable CBC. BMP shows potassium 4.2, creatinine 0.9 , normal TSH, normal AST/ALT/ALP. MAY 31, 2017: Overnight, patient has done well. Denies chest pain, heaviness , tightness, shortness of breath or syncope. Dr. Field seen patient this morning. Etiology of syncope is uncertain. She was scheduled for permanent pacemaker implantation on Friday the patient would like to be discharged home in believe this is reasonable. Of note, patient had just started lisinopril when she had the episode. For that reason, we will not resume her lisinopril. Patient is currently scheduled to return to [facility] for permanent pacemaker implantation on Friday and she will keep that appointment. - Time spent with patient Time with patient DS: Greater than 30 minutes Diagnosis - Discharge Diagnosis (1) Syncope Status: Resolved (2) Bradycardia Status: Chronic (3) Diabetes mellitus Status: Chronic (4) Second degree heart block Status: Chronic (5) Right bundle branch block (RBBB) Status: Chronic (6) Hypertension Status: Chronic (7) Type 2 diabetes mellitus Status: Chronic Discharge Plan - Discharge Data Disposition: Disch To Home/Self Care Condition at Discharge: Stable Discharge Diet: heart healthy Activity: resume usual activities as tolerated Hygiene: no restrictions Weight Bearing at Discharge: full weight bearing Driving: not until seen by doctor Contact your physician if you experience:: fever over 101, Difficulty voiding, Redness or swelling, Nausea/Vomiting, Shortness of breath, Bleeding, pain uncontrolled by pain medications - Discharge Medications Continue Insulin Aspart [NovoLOG] 35 unit SUBCUT .PUMP buPROPion HCl [Bupropion Xl] 300 mg PO QAM Levothyroxine Tab [Synthroid Tab] 125 mcg PO DAILY@0700 ALPRAZolam [Alprazolam] 0.25 mg PO TID PRN PRN Reason: Anxiety Estradiol [Estradiol Tab] 0.5 mg PO QAM Aspirin EC Tab 81 mg PO QAM Discontinued Lisinopril 10 mg PO QAM - Follow Up or Referral - Forms/Instructions Additional Discharge Instructions: Patient may be discharged. Emir has already seen. Exam - Constitutional Vitals: Period Temp Pulse Resp BP Sys/Molina Pulse Ox Last 24 Hr 96.9 F-100.2 F 64-88 15-21 126-199/55-91 98-100 Exam: General: [Appears well with no apparent distress.] [Pleasant and cooperative. ] [Appears comfortable.] HEENT: [PERRL, normocephalic, atraumatic. Mucous membranes moist. No jaundice noted. Conjunctiva moist and clear, sclerae anicteric] Neck: No JVD/HJR, no thyromegaly or lymphadenopathy noted. No carotid bruit appreciated Cardiac: [Regular rate and rhythm.] [No murmur rub or gallop.] . Lungs: [Clear to auscultation without accessory muscle use to assist the respiratory pattern.] Not requiring oxygen Abdomen: Soft, bowel sounds normoactive. Nontender and nondistended. No abdominal bruit or thrill noted. No masses noted. Musculoskeletal: No fluid collection. Decreased range of motion is noted. Extremities: No clubbing, cyanosis noted. [ No edema noted.] Upper extremity pulses 2+. Lower extremity pulses 2+. Capillary refill less than 3 seconds. Skin: No unusual lesions or rashes. No skin breakdown appreciated. Neuro: Awake, alert and oriented 3. Moves all extremities well without hemiparesis or paralysis. No essential tremor is appreciated. Discharge Results Procedures and tests throughout hospitalization: Pending Orders 05/30/17 Urine Culture Routine 06/01/17 04:00 B-Type Natriuretic Peptide IN AM Comp Blood Count Auto Diff IN AM Magnesium IN AM 06/02/17 04:00 B-Type Natriuretic Peptide IN AM Comp Blood Count Auto Diff IN AM Magnesium IN AM Labs on day of discharge: Labs from last 24 hours 05/31/17 05/31/17 05/31/17 07:28 04:37 04:37 WBC RBC Hgb Hct MCV MCH MCHC RDW Plt Count MPV Neut % (Auto) Lymph % (Auto) [place] % (Auto) Eos % (Auto) Baso % (Auto) Neut # (Auto) Lymph # (Auto) [place] # (Auto) Eos # (Auto) Baso # (Auto) Immature Gran % Nucleated RBC % Immature Gran # Nucleated RBCs # Immature Plt Fraction Sodium Potassium Chloride Carbon Dioxide Anion Gap BUN Creatinine GFR Calculation BUN/Creatinine Ratio Glucose POC Glucose 223 H Calculated Osmolality Calcium Magnesium 2.5 H Total Bilirubin AST ALT Alkaline Phosphatase B-Natriuretic Peptide 176 H Total Protein Albumin Globulin Albumin/Globulin Ratio Triglycerides 65 Cholesterol 203 H LDL Cholesterol 94.0 VLDL Cholesterol 13.0 HDL Cholesterol 97 H Heart Disease Risk Ratio 2.09 TSH 3rd Generation Urine Color Urine Appearance Urine pH Ur Specific Mccoll Urine Protein Urine Glucose (UA) Urine Ketones Urine Blood Urine Nitrate Urine Bilirubin Urine Urobilinogen Urine Leukocytes Urine RBC Urine WBC Ur Squamous Epith Cells Urine Bacteria Hyaline Casts Urine Mucus Ur Culture Indicated? 05/31/17 05/30/17 05/30/17 04:37 20:58 20:07 WBC 5.9 RBC 3.73 L Hgb 11.4 L Hct 34.4 L MCV 92.2 MCH 31 MCHC 33.1 RDW 13.1 Plt Count 201 MPV 9.8 Neut % (Auto) 39.3 Lymph % (Auto) 43.5 [place] % (Auto) 12.1 Eos % (Auto) 4.2 Baso % (Auto) 0.7 Neut # (Auto) 2.3 Lymph # (Auto) 2.6 [place] # (Auto) 0.7 Eos # (Auto) 0.3 Baso # (Auto) 0.0 Immature Gran % 0.2 Nucleated RBC % 0.0 Immature Gran # 0.01 Nucleated RBCs # 0.00 Immature Plt Fraction 0.0 Sodium Potassium Chloride Carbon Dioxide Anion Gap BUN Creatinine GFR Calculation BUN/Creatinine Ratio Glucose POC Glucose 261 H Calculated Osmolality Calcium Magnesium Total Bilirubin AST ALT Alkaline Phosphatase B-Natriuretic Peptide Total Protein Albumin Globulin Albumin/Globulin Ratio Triglycerides Cholesterol LDL Cholesterol VLDL Cholesterol HDL Cholesterol Heart Disease Risk Ratio TSH 3rd Generation Urine Color Yellow Urine Appearance Slightly hazy Urine pH 5.0 Ur Specific Mccoll 1.012 Urine Protein Negative Urine Glucose (UA) >=500 Urine Ketones 20 Urine Blood Negative Urine Nitrate Negative Urine Bilirubin Negative Urine Urobilinogen < 2.0 H Urine Leukocytes Small H Urine RBC 1 Urine WBC 22 Ur Squamous Epith Cells Occasional Urine Bacteria Occasional Hyaline Casts 5 Urine Mucus Occasional Ur Culture Indicated? Results to follow 05/30/17 05/30/17 05/30/17 14:42 14:42 14:42 WBC 8.1 RBC 4.12 Hgb 12.7 Hct 38.0 MCV 92.2 MCH 31 MCHC 33.4 RDW 13.2 Plt Count 238 MPV 10.0 Neut % (Auto) 72.0 Lymph % (Auto) 18.2 L [place] % (Auto) 7.5 Eos % (Auto) 1.1 Baso % (Auto) 0.7 Neut # (Auto) 5.8 Lymph # (Auto) 1.5 [place] # (Auto) 0.6 Eos # (Auto) 0.1 Baso # (Auto) 0.1 Immature Gran % 0.5 Nucleated RBC % 0.0 Immature Gran # 0.04 Nucleated RBCs # 0.00 Immature Plt Fraction 0.0 Sodium 139 Potassium 4.2 Chloride 104 Carbon Dioxide 30 Anion Gap 9.2 BUN 11 Creatinine 0.90 GFR Calculation 68 BUN/Creatinine Ratio 12.00 Glucose 118 H POC Glucose Calculated Osmolality 276.5 Calcium 9.2 Magnesium Total Bilirubin 0.50 AST 25 ALT 22 Alkaline Phosphatase 71 B-Natriuretic Peptide Total Protein 8.0 Albumin 3.9 Globulin 4.1 H Albumin/Globulin Ratio 0.9 L Triglycerides Cholesterol LDL Cholesterol VLDL Cholesterol HDL Cholesterol Heart Disease Risk Ratio TSH 3rd Generation 1.030 Urine Color Urine Appearance Urine pH Ur Specific M[place]oll Urine Protein Urine Glucose (UA) Urine Ketones Urine Blood Urine Nitrate Urine Bilirubin Urine Urobilinogen Urine Leukocytes Urine RBC Urine WBC Ur Squamous Epith Cells Urine Bacteria Hyaline Casts Urine Mucus Ur Culture Indicated? Preliminary micro results at discharge 05/30/17 Unknown Urine Culture - Preliminary Urine,Voided No Growth at 12 hours. - Imaging and Cardiology Cardiology Procedure: report reviewed by me Procedure: Chest x-ray: report reviewed by me DS: Provider Date of admission: 05/30/17 15:00 Primary care physician: Yoly Townsend M.D. Attending physician on admission: Mikey Field MD Discharging clinician: Loreto Reddy NP Expected date of discharge: 05/31/17
== END 2017-05-31 11:47 | disposition home or self-care (01) | DRG 312 ==
LOC: N.ED 13:32 → OBSVTOIN 14:53 → INTOOBSV 14:53 → N.EDINP 15:00 → N.TELES 16:28
PROVIDERS: ADMIT Internal Medicine Cardiovascular Disease; ATTEND Internal Medicine Cardiovascular Disease

== ENCOUNTER 2022-08-01 22:43 | Inpatient (IN) ==
[2022-08-01] MEDS ORDERED: ONDANSETRON 4 MG/2 ML VIAL IV STA (23:05)
[2022-08-01] MEDS ORDERED: methylPREDNISolone SOD SUC 125 MG/2 ML VIAL IV STA (23:05)
[2022-08-01] MEDS ORDERED: FUROSEMIDE 40 MG/4 ML VIAL IV STA (23:05)
[2022-08-01] MEDS ORDERED: ALBUTEROL/IPRATROPIUM 3 ML NEB RESP TX STA (23:05)
[2022-08-01 23:19] LABS: Basophils # 0.1 10*3/uL (0.0-0.2); Basophils % 0.4 % (0.0-0.8); Eosinophils # 0.3 10*3/uL (0.0-0.87); Eosinophils % 1.8 % (0.00-10.9); Hematocrit 38.4 VOL% (35.7-47.0); Hemoglobin 12.2 GM/DL (12.0-16.0); Immature Granulocytes % 0.3 %; Immature Granulocytes Absolute 0.05 #; Lymphocytes % 12.8 % (21.3-54.2); Mean Corpuscular HGB Conc 31.8 GM/DL (32-36); Mean Corpuscular Volume 95.8 FL (87-102); Mean Platelet Volume 9.6 FL (9.6-12.0); Monocytes # 0.8 10*3/uL (0.11-0.8); Monocytes % 4.9 % (1.7-12.7); Neutrophils % 79.8 % (38.7-73.9); Platelet Count 199 T/CUMM (130-400); Red Blood Count 4.01 MC/CUMM (3.8-5.5); Red Cell Distribution Width 14.4 % (9.3-17.3); White Blood Count 15.4 T/CUMM (4-12)
[2022-08-01 23:31] LABS: INR 0.9; PT Patient Result 10.1 SECS (10.1-12.1); Partial Thromboplastin Time 25.6 SECS (23.7-32.9)
[2022-08-01 23:38] LABS: Albumin 3.6 G/DL (3.4-5.0); Bilirubin,Total 0.6 MG/DL (0.20-1.00); Calcium 8.7 MG/DL (8.5-10.1); Osmolality,Calculated 290.1 MOS/KG (273-304); Total Protein 6.8 G/DL (6.4-8.2)
[2022-08-01] MEDS ORDERED: NITROGLYCERIN 2% OINT 1 INCH/GM PACK TOP STA (23:47)
[2022-08-01] MEDS ORDERED: ENOXAPARIN 100 MG/ML SYRINGE SUBCUT STA (23:48)
[2022-08-01] MEDS ORDERED: ASPIRIN EC 325 MG TABLET PO STA (23:48)
[2022-08-02] MEDS ORDERED: FUROSEMIDE 40 MG/4 ML VIAL IV STA (00:03)
[2022-08-02] MEDS ORDERED: ONDANSETRON 4 MG/2 ML VIAL IV STA (00:06)
[2022-08-02] MEDS ORDERED: ALBUTEROL NEB SOLN 5 MG/ML 20 ML/BOTTLE CONT NEB STA (00:23)
[2022-08-02] MEDS ORDERED: PIPERACILLIN/TAZOBACTAM 3,375 MG in SODIUM CHLORIDE 0.9% 100 ML IV STA (00:32)
[2022-08-02 00:43] LABS: Arterial Base Excess iSTAT 0 MMOL/L (-2.5-2.5); Arterial Bicarbonate iSTAT 24.5 MMOL/L (20-26); Arterial O2 Saturation iSTAT 86 % (95-100); Arterial PCO2 iSTAT 39 MM HG (35-48); Arterial PO2 iSTAT 51 MM HG (80-95); Arterial Total CO2 iSTAT 26 MMO/L (23-27)
[2022-08-02] MEDS ORDERED: GLUCAGON 1 MG VIAL IM PRN (00:44)
[2022-08-02] MEDS ORDERED: ALUMINUM/MAGNES/SIMETH MAX STR 30 ML UDCUP PO PRN (00:44)
[2022-08-02] MEDS ORDERED: MORPHINE 2 MG/1 ML SYRINGE IV PRN (00:44)
[2022-08-02] MEDS ORDERED: ACETAMINOPHEN 325 MG TABLET PO PRN (00:44)
[2022-08-02] MEDS: ALBUTEROL/IPRATROPIUM 3 ML NEB RESP TX SCH ×4 (01:00→20:00)
[2022-08-02] MEDS ORDERED: DEXTROSE 10% 250 ML BAG IV PRN ×2 (01:06→12:13)
[2022-08-02 02:15] LABS: Basophils % 0.3 % (0.0-0.8); Eosinophils % 0.3 % (0.00-10.9); Hematocrit 38.8 VOL% (35.7-47.0); Hemoglobin 12.3 GM/DL (12.0-16.0); Immature Granulocytes % 0.6 %; Immature Granulocytes Absolute 0.09 #; Lymphocytes # 0.9 10*3/uL (1.4-4.0); Lymphocytes % 6.1 % (21.3-54.2); Mean Corpuscular HGB Conc 31.7 GM/DL (32-36); Mean Corpuscular Volume 96.5 FL (87-102); Mean Platelet Volume 9.7 FL (9.6-12.0); Monocytes # 0.4 10*3/uL (0.11-0.8); Monocytes % 2.8 % (1.7-12.7); Neutrophils % 89.9 % (38.7-73.9); Platelet Count 193 T/CUMM (130-400); Red Blood Count 4.02 MC/CUMM (3.8-5.5); Red Cell Distribution Width 14.4 % (9.3-17.3); White Blood Count 14.9 T/CUMM (4-12)
[2022-08-02 02:27] LABS: Partial Thromboplastin Time 34.8 SECS (23.7-32.9)
[2022-08-02 02:39] LABS: Osmolality,Calculated 289.5 MOS/KG (273-304); Potassium 3.8 MMOL/L (3.5-5.1); Risk Ratio 1.87; Thyroid Stimulating Hormone 0.521 uIU/ml (0.358-3.74); VLDL Cholesterol 14.2 MG/DL
[2022-08-02] MEDS: ONDANSETRON 4 MG/2 ML VIAL IV PRN (03:31)
[2022-08-02 06:27] LABS: Arterial Base Excess iSTAT -6 MMOL/L (-2.5-2.5); Arterial Bicarbonate iSTAT 18.5 MMOL/L (20-26); Arterial O2 Saturation iSTAT 98 % (95-100); Arterial PCO2 iSTAT 32 MM HG (35-48); Arterial PO2 iSTAT 113 MM HG (80-95); Arterial Total CO2 iSTAT 19 MMO/L (23-27); Arterial pH iSTAT 7.373 (7.35-7.45)
[2022-08-02] MEDS: PANTOPRAZOLE 40 MG TABLET PO SCH (08:21)
[2022-08-02] MEDS: INSULIN REGULAR 100 UNIT/ML SUBCUT SCH ×3 (08:21→20:37)
[2022-08-02] MEDS: FUROSEMIDE 40 MG/4 ML VIAL IV SCH ×2 (08:23→15:20)
[2022-08-02] MEDS: INSULIN LISPRO 100 UNIT/ML CONTDEVICE SCH ×4 (09:30→20:36)
[2022-08-02] MEDS ORDERED: ENOXAPARIN 80 MG/0.8 ML SYRINGE SUBCUT SCH (11:00)
[2022-08-02] MEDS ORDERED: ENOXAPARIN 40 MG/0.4 ML SYRINGE SUBCUT SCH (12:30)
[2022-08-02] MEDS ORDERED: SODIUM CHLORIDE 0.9% 500 ML IV SCH (14:30)
[2022-08-02 17:13] LABS: Calcium 8.5 MG/DL (8.5-10.1)
[2022-08-02] MEDS: LEVOTHYROXINE 137 MCG TABLET PO SCH (18:28)
[2022-08-02] MEDS: cefTRIAXone 1,000 MG in SODIUM CHLORIDE 0.9% 100 ML IV SCH (18:28)
[2022-08-02] MEDS: lisinopriL 5 MG TABLET PO SCH (18:28)
[2022-08-02] MEDS: AZITHROMYCIN INJ 500 MG in SODIUM CHLORIDE 0.9% 250 ML IV SCH (19:47)
[2022-08-02 20:36] LABS: Glucose,Urine (UA) 250 mg/dL (Negative); Ketones,Urine Trace mg/dL (Negative); Nitrite,Urine Negative (Negative); Protein,Urine Negative (Negative); Urine Appearance Clear (Clear); Urine Color Yellow (Yellow); Urine Specific Gravity <= 1.005 (1.001-1.035)
[2022-08-02] MEDS: ENOXAPARIN 40 MG/0.4 ML SYRINGE SUBCUT SCH (20:36)
[2022-08-02 20:37] LABS: Bilirubin,Urine Negative (Negative); Blood, Urine Small mg/dL (Negative); Urine Urobilinogen 0.2 eU/dL (<2.0)
[2022-08-02 20:38] LABS: Bacteria,Urine Occasional /HPF (Few); Mucus,Urine Occasional /LPF (Occasional); RBC,Urine 11 /HPF (0-4); Squamous Epithelial Cell,Urine Occasional /HPF (0-10)
[2022-08-02] MEDS: ALPRAZolam 0.25 MG TABLET PO PRN (20:42)
[2022-08-03] MEDS: ALBUTEROL/IPRATROPIUM 3 ML NEB RESP TX SCH ×4 (02:10→19:27)
[2022-08-03] MEDS: ONDANSETRON 4 MG/2 ML VIAL IV PRN ×2 (03:27→17:00)
[2022-08-03 05:36] LABS: Basophils % 0.1 % (0.0-0.8); Hematocrit 32.1 VOL% (35.7-47.0); Hemoglobin 10.5 GM/DL (12.0-16.0); Immature Granulocytes % 2.4 %; Immature Granulocytes Absolute 0.48 #; Lymphocytes % 10.3 % (21.3-54.2); Mean Corpuscular HGB Conc 32.7 GM/DL (32-36); Mean Corpuscular Volume 94.1 FL (87-102); Mean Platelet Volume 9.8 FL (9.6-12.0); Monocytes # 1.4 10*3/uL (0.11-0.8); Monocytes % 7.3 % (1.7-12.7); Neutrophils % 79.9 % (38.7-73.9); Platelet Count 187 T/CUMM (130-400); Red Blood Count 3.41 MC/CUMM (3.8-5.5); Red Cell Distribution Width 14.8 % (9.3-17.3); White Blood Count 19.7 T/CUMM (4-12)
[2022-08-03 05:45] LABS: Osmolality,Calculated 299.7 MOS/KG (273-304); Potassium 4.6 MMOL/L (3.5-5.1)
[2022-08-03] MEDS: LEVOTHYROXINE 137 MCG TABLET PO SCH (07:15)
[2022-08-03] MEDS: INSULIN REGULAR 100 UNIT/ML SUBCUT SCH ×2 (08:10→09:23)
[2022-08-03] MEDS ORDERED: ASPIRIN EC 325 MG TABLET PO SCH (09:00)
[2022-08-03] MEDS: EZETIMIBE 10 MG TABLET PO SCH (09:19)
[2022-08-03] MEDS: ASPIRIN EC 81 MG TABLET PO SCH (09:19)
[2022-08-03] MEDS: lisinopriL 5 MG TABLET PO SCH (09:19)
[2022-08-03] MEDS: PANTOPRAZOLE 40 MG TABLET PO SCH (09:19)
[2022-08-03] MEDS: INSULIN LISPRO 100 UNIT/ML CONTDEVICE SCH ×3 (10:29→16:45)
[2022-08-03] MEDS: SODIUM CHLORIDE 0.9% 1,000 ML IV SCH ×2 (10:52→20:49)
[2022-08-03] MEDS: INSULIN GLARGINE 100 UNIT/ML SUBCUT SCH (10:52)
[2022-08-03] MEDS: INSULIN LISPRO 100 UNIT/ML SUBCUT SCH ×4 (10:52→23:43)
[2022-08-03 14:37] LABS: Bilirubin,Urine Negative (Negative); Blood, Urine Moderate mg/dL (Negative); Glucose,Urine (UA) >=500 mg/dL (Negative); Ketones,Urine 5 mg/dL (Negative); Mucus,Urine Occasional /LPF (Occasional); Nitrite,Urine Negative (Negative); Protein,Urine Negative (Negative); RBC,Urine 2 /HPF (0-4); Squamous Epithelial Cell,Urine Occasional /HPF (0-10); Urine Appearance CLEAR (Clear); Urine Color Yellow (Yellow); Urine Specific Gravity 1.015 (1.001-1.035); Urine Urobilinogen < 2.0 eU/dL (<2.0)
[2022-08-03] MEDS ORDERED: INSULIN LISPRO 100 UNIT/ML SUBCUT SCH (16:00)
[2022-08-03 16:37] LABS: Calcium 8.4 MG/DL (8.5-10.1); Osmolality,Calculated 290.4 MOS/KG (273-304)
[2022-08-03] MEDS: cefTRIAXone 1,000 MG in SODIUM CHLORIDE 0.9% 100 ML IV SCH (16:54)
[2022-08-03] MEDS: AZITHROMYCIN INJ 500 MG in SODIUM CHLORIDE 0.9% 250 ML IV SCH (17:55)
[2022-08-03] MEDS: ENOXAPARIN 40 MG/0.4 ML SYRINGE SUBCUT SCH (20:45)
[2022-08-03] MEDS: POLYETHYLENE GLYCOL POWDER 17 GM PACK PO SCH (20:47)
[2022-08-04] MEDS: ALBUTEROL/IPRATROPIUM 3 ML NEB RESP TX SCH ×4 (00:49→19:07)
[2022-08-04] MEDS: INSULIN LISPRO 100 UNIT/ML SUBCUT SCH ×5 (04:50→20:49)
[2022-08-04 05:25] LABS: Basophils % 0.2 % (0.0-0.8); Eosinophils # 0.1 10*3/uL (0.0-0.87); Eosinophils % 0.8 % (0.00-10.9); Hematocrit 30.5 VOL% (35.7-47.0); Hemoglobin 9.9 GM/DL (12.0-16.0); Immature Granulocytes % 1.6 %; Lymphocytes # 2.2 10*3/uL (1.4-4.0); Lymphocytes % 17.7 % (21.3-54.2); Mean Corpuscular HGB Conc 32.5 GM/DL (32-36); Mean Corpuscular Volume 95.6 FL (87-102); Mean Platelet Volume 10.1 FL (9.6-12.0); Monocytes % 7.7 % (1.7-12.7); Platelet Count 165 T/CUMM (130-400); Red Blood Count 3.19 MC/CUMM (3.8-5.5); Red Cell Distribution Width 14.9 % (9.3-17.3); White Blood Count 12.4 T/CUMM (4-12)
[2022-08-04 05:28] LABS: Basophils % 0.2 % (0.0-0.8); Eosinophils # 0.1 10*3/uL (0.0-0.87); Eosinophils % 0.9 % (0.00-10.9); Hematocrit 30.7 VOL% (35.7-47.0); Hemoglobin 9.8 GM/DL (12.0-16.0); Lymphocytes # 2.1 10*3/uL (1.4-4.0); Mean Corpuscular HGB Conc 31.9 GM/DL (32-36); Mean Corpuscular Volume 96.2 FL (87-102); Mean Platelet Volume 10.1 FL (9.6-12.0); Monocytes # 0.9 10*3/uL (0.11-0.8); Monocytes % 7.3 % (1.7-12.7); Neutrophils % 73.6 % (38.7-73.9); Platelet Count 161 T/CUMM (130-400); Red Blood Count 3.19 MC/CUMM (3.8-5.5); White Blood Count 12.4 T/CUMM (4-12)
[2022-08-04 05:40] LABS: Calcium 8.2 MG/DL (8.5-10.1); Osmolality,Calculated 292.8 MOS/KG (273-304); Potassium 3.6 MMOL/L (3.5-5.1)
[2022-08-04] MEDS: LEVOTHYROXINE 137 MCG TABLET PO SCH (06:08)
[2022-08-04] MEDS: SODIUM CHLORIDE 0.9% 1,000 ML IV SCH (09:04)
[2022-08-04] MEDS: INSULIN GLARGINE 100 UNIT/ML SUBCUT SCH (09:06)
[2022-08-04] MEDS: ASPIRIN EC 81 MG TABLET PO SCH (09:07)
[2022-08-04] MEDS: PANTOPRAZOLE 40 MG VIAL IV SCH (09:07)
[2022-08-04] MEDS: EZETIMIBE 10 MG TABLET PO SCH (09:07)
[2022-08-04] MEDS: POLYETHYLENE GLYCOL POWDER 17 GM PACK PO SCH (09:08)
[2022-08-04] MEDS ORDERED: GLUCAGON 1 MG VIAL IM PRN (13:59)
[2022-08-04] MEDS ORDERED: DEXTROSE 50% 25 GM/50 ML VIAL IV PRN (13:59)
[2022-08-04] MEDS: cefTRIAXone 1,000 MG in SODIUM CHLORIDE 0.9% 100 ML IV SCH (16:21)
[2022-08-04] MEDS: AZITHROMYCIN INJ 500 MG in SODIUM CHLORIDE 0.9% 250 ML IV SCH (17:13)
[2022-08-04] MEDS: ENOXAPARIN 40 MG/0.4 ML SYRINGE SUBCUT SCH (20:48)
[2022-08-05] MEDS: ALBUTEROL/IPRATROPIUM 3 ML NEB RESP TX SCH ×3 (00:23→13:24)
[2022-08-05] MEDS: INSULIN LISPRO 100 UNIT/ML SUBCUT SCH ×4 (00:44→11:09)
[2022-08-05 04:59] LABS: Basophils % 0.4 % (0.0-0.8); Eosinophils # 0.6 10*3/uL (0.0-0.87); Eosinophils % 6.6 % (0.00-10.9); Hematocrit 28.9 VOL% (35.7-47.0); Hemoglobin 9.4 GM/DL (12.0-16.0); Lymphocytes # 3.1 10*3/uL (1.4-4.0); Lymphocytes % 37.5 % (21.3-54.2); Mean Corpuscular HGB Conc 32.5 GM/DL (32-36); Mean Corpuscular Volume 96.3 FL (87-102); Mean Platelet Volume 9.9 FL (9.6-12.0); Monocytes # 0.6 10*3/uL (0.11-0.8); Monocytes % 7.5 % (1.7-12.7); Neutrophils % 47.8 % (38.7-73.9); Platelet Count 160 T/CUMM (130-400); White Blood Count 8.3 T/CUMM (4-12)
[2022-08-05 05:14] LABS: Calcium 8.2 MG/DL (8.5-10.1); Osmolality,Calculated 290.1 MOS/KG (273-304)
[2022-08-05] MEDS: LEVOTHYROXINE 137 MCG TABLET PO SCH (06:07)
[2022-08-05] MEDS: ALPRAZolam 0.25 MG TABLET PO PRN (06:07)
[2022-08-05] MEDS: EZETIMIBE 10 MG TABLET PO SCH (08:56)
[2022-08-05] MEDS: ASPIRIN EC 81 MG TABLET PO SCH (08:57)
[2022-08-05] MEDS: INSULIN GLARGINE 100 UNIT/ML SUBCUT SCH (08:57)
[2022-08-05] MEDS: POLYETHYLENE GLYCOL POWDER 17 GM PACK PO SCH (08:58)
[2022-08-05] MEDS: PANTOPRAZOLE 40 MG VIAL IV SCH (08:58)
[2022-08-05] MEDS ORDERED: TORSEMIDE 20 MG TABLET PO SCH (11:00)
[2022-08-05 12:04] VITALS: BP 149/67
== END 2022-08-05 15:36 | disposition home or self-care (01) | DRG 291 ==
LOC: N.ED 22:43 → SUATTDRO 08-02 00:42 → N.TELEN 08-02 00:42
PROVIDERS: ADMIT Internal Medicine; ATTEND Emergency Medicine